=== PATIENT | female | born 1960 ===

== ENCOUNTER 2018-03-29 23:47 | Emergency (ER) | payer MEDICARE, BC ==
[2018-03-30 00:03] VITALS: BP 117/72; TEMP 99
[2018-03-30] MEDS ORDERED: Sodium Chloride 0.9% 1,000 ML IV STA (00:30)
[2018-03-30 01:14] LABS: BASO # 0.1 K/uL (0.0-0.2); BASO % 0.9 % (0.0-2.0); EOS # 0.3 K/uL (0.0-0.7); EOS % 3.6 % (0.0-4.0); HEMOGLOBIN 12.7 g/dL (12.0-16.0); LYMPH # 1.9 K/uL (1.0-4.3); LYMPH % 20.5 % (20.0-40.0); MEAN CELL VOLUME 81.6 fl (81.0-99.0); MEAN CORPUSCULAR HEMOGLOBIN 26.1 pg (27.0-31.0); MEAN PLATELET VOLUME 10.4 fl (7.2-11.7); MONO # 0.8 K/uL (0.0-0.8); MONO % 8.8 % (0.0-10.0); NEUT # 6.3 K/uL (1.8-7.0); NEUT % 66.2 % (50.0-75.0); RBC 4.86 Mil/uL (3.80-5.20); RED CELL DISTRIBUTION WIDTH 15.9 % (11.5-14.5); WHITE BLOOD COUNT 9.4 K/uL (4.8-10.8)
[2018-03-30 01:16] LABS: BLOOD UREA NITROGEN 10 mg/dl (7-17); CALCIUM 8.9 mg/dL (8.4-10.2); GFR AFRICAN-AMERICAN > 60; GFR NON-AFRICAN AMERICAN > 60
--- NOTE | 2018-03-30 02:06 | ED PDOC ---
HPI: General Adult Time Seen by Provider: 03/30/18 00:08 Chief Complaint (Nursing): Dizziness/Lightheaded History Per: Patient History/Exam Limitations: no limitations Onset/Duration Of Symptoms: Days Current Symptoms Are (Timing): Still Present Additional Complaint(s): Hx of DM, HTN, RA presenting with tingling pain in feet and joint pain. States she was recently changed from januvia to a different medication who's name she cannot recall, states that since she has had burning tingling sensation to the bottom of her feet. She also feels joint pain in her ribs, elbows. Is currently on isoniazid in preparation for humira. No fevers, chills, cough. No chest pain, shortness of breath, headaches. Past Medical History Reviewed: Historical Data, Nursing Documentation Vital Signs: Last Vital Signs Temp 99.0 F 03/30/18 00:00 Pulse 104 H 03/30/18 00:00 Resp 16 03/30/18 00:00 BP 117/72 03/30/18 00:00 Pulse Ox 98 03/30/18 02:07 - Medical History PMH: Arthritis, Diabetes, HTN - Family History Family History: States: Unknown Family Hx - Allergies Allergies/Adverse Reactions: Allergies Allergy/AdvReac Type Severity Reaction Status Date / Time No Known Allergies Allergy Verified 03/30/18 00:00 Review of Systems ROS Statement: Except As Marked, All Systems Reviewed And Found Negative Musculoskeletal: Positive for: Foot Pain Physical Exam - Reviewed Nursing Documentation Reviewed: Yes Vital Signs Reviewed: Yes - Physical Exam Appears: Positive for: Well, Non-toxic, Uncomfortable Head Exam: Positive for: ATRAUMATIC, NORMAL INSPECTION, NORMOCEPHALIC Skin: Positive for: Normal Color, Warm, DRY Eye Exam: Positive for: EOMI, Normal appearance, PERRL ENT: Positive for: Normal ENT Inspection Neck: Positive for: Normal, Painless ROM Cardiovascular/Chest: Positive for: Regular Rate, Rhythm Respiratory: Positive for: CNT, Normal Breath Sounds Gastrointestinal/Abdominal: Positive for: Normal Exam, Soft Back: Positive for: Normal Inspection Extremity: Positive for: Normal ROM Neurologic/Psych: Positive for: Alert, Oriented - Laboratory Results Result Diagrams: 03/30/18 00:59 03/30/18 00:59 - ECG O2 Sat by Pulse Oximetry: 98 Pulse Ox Interpretation: Normal Medical Decision Making Medical Decision MakinAM A/P: Hx of HTN, DM, RA presenting with joint pain and feet burning -joint pain likely result of RA, will provide NSAID for relief -patient's description of feet pain sounds like diabetic neuropathy, will provide neurontin -will check basic bloodwork and re-eval after workup 230AM -Patient starting to feel better, states still having some joint pains, will provide 2mg of morphine for adequate pain relief -Patient wants to go home, advised to keep appointment with rheuamtolgoist tomorrow and also to followup with PMD in 2-3 days -Well appearing with stable vitals upon discahrge. Disposition - Clinical Impression Clinical Impression: Joint pain, Neuropathy - Disposition Referrals: Ani Washington MD [Primary Care Provider] - Disposition: Routine/Home Disposition Time: 02:30 Condition: STABLE Additional Instructions: Please followup with your primary care doctor in 2 - 3 days for re-evaluation and adjustment in your medications. Instructions: Peripheral Neuropathy, Joint Pain Forms: [employer] (Mongolian)
[2018-03-30 02:59] VITALS: PULSE 91; RESP 17; O2SAT 100
== END 2018-03-30 02:56 | disposition home or self-care (01) ==
LOC: H.ER 23:47
DX: G62.9 Polyneuropathy, unspecified (principal); E11.9 Type 2 diabetes mellitus without complications
CPT/HCPCS: 80048; 82948; 85025; 96374; 96375; 99283; J1885; J2270; J7040